=== PATIENT | female | born 1955 ===

== ENCOUNTER 2019-05-28 09:04 | Outpatient (CLI) | payer MEDICARE ==
[2019-05-28 10:59] LABS: Basophils % (Auto) 0.7 % (0.0-1.8); Eosinophils # (Auto) 0.1 K/mm3 (0.0-0.4); Eosinophils % (Auto) 2.2 % (0.0-4.3); Hematocrit 40.8 % (30.3-42.9); Hemoglobin 13.2 gm/dl (10.1-14.3); Lymphocytes # (Auto) 1.6 K/mm3 (1.2-5.4); Mean Corpuscular HGB Conc 32 % (30-34); Mean Corpuscular Volume 82 fl (79-97); Monocytes # (Auto) 0.5 K/mm3 (0.0-0.8); Monocytes % (Auto) 7.2 % (0.0-7.3); Platelet Count 253 K/mm3 (140-440); Red Blood Count 4.97 M/mm3 (3.65-5.03); Red Cell Distribution Width 14.5 % (13.2-15.2)
[2019-05-28 11:12] LABS: Alanine Aminotransferase 30 units/L (7-56); Albumin 5.1 g/dL (3.9-5); BUN/Creatinine Ratio 18; Blood Urea Nitrogen 14 mg/dL (7-17); Calcium 9.9 mg/dL (8.4-10.2); Chol/HDL Ratio 3.34 %; HDL Cholesterol 58 mg/dL (40-59); Hemolysis Index 89; LDL Cholesterol,Direct 127 mg/dL (50-130)
[2019-05-31 15:11] LABS: Vitamin D, 25-OH, D2 52 ng/mL
== END 2019-05-28 09:05 | disposition home or self-care (01) ==
LOC: LAB 09:04
PROVIDERS: ATTEND Internal Medicine
DX: Z00.00 Encounter for general adult medical examination without abnormal findings (principal); E78.5 Hyperlipidemia, unspecified; R73.09 Other abnormal glucose; Z13.21 Encounter for screening for nutritional disorder; Z13.29 Encounter for screening for other suspected endocrine disorder
CPT/HCPCS: 36415; 80053; 80061; 82306; 82607; 83036; 84443; 85025

== ENCOUNTER 2019-10-12 10:10 | Outpatient (CLI) | payer MEDICARE ==
[2019-10-12 12:36] LABS: Chol/HDL Ratio 3.81 %
== END 2019-10-12 10:11 | disposition home or self-care (01) ==
LOC: LAB 10:10
PROVIDERS: ATTEND Internal Medicine
DX: I10 Essential (primary) hypertension (principal); E78.5 Hyperlipidemia, unspecified; R73.03 Prediabetes
CPT/HCPCS: 36415; 80061; 83036

== ENCOUNTER 2022-01-12 08:29 | Emergency (ER) | payer MEDICARE ==
[2022-01-12 08:56] VITALS: BP 133/79
--- NOTE | 2022-01-12 09:06 | Emergency Department Report ---
ED Lower Extremity HPI - General Chief Complaint: Extremity Injury, Lower Stated Complaint: FOOT INJURY Time Seen by Provider: 01/12/22 08:56 Source: patient Mode of arrival: Ambulatory Limitations: No Limitations - History of Present Illness Initial Comments: Patient is a 66-year-old female that comes to the emergency room with her sister. She is complaining of right lateral ankle swelling. The patient has schizophrenia, is in the care of her sister. There is no injury known. But the sister notes that the patient had swelling over the last several days and was limping so she brought her in to make sure she has not fractured her ankle. Patient is ambulatory neurovascularly intact MD Complaint: ankle injury -: Sudden, days(s) Injury: Ankle: Right Type of Injury: unknown Place: home Severity: mild - Related Data Home Medications Medication Instructions Recorded Confirmed Last Taken Metoprolol 50 mg PO DAILY 06/21/18 06/21/18 06/20/18 Pravastatin 20 mg PO DAILY 06/21/18 06/21/18 06/20/18 QUEtiapine 50 mg PO DAILY 06/21/18 06/21/18 06/20/18 Vitamin D2 1 tab PO DAILY 06/21/18 06/21/18 06/20/18 amLODIPine 5 mg PO DAILY 06/21/18 06/21/18 06/20/18 cloNIDine-TTS PATCH 0.2 mg PO DAILY 06/21/18 06/21/18 06/20/18 hydroCHLOROthiazide 25 mg PO DAILY 06/21/18 06/21/18 06/20/18 Allergies Allergy/AdvReac Type Severity Reaction Status Date / Time No Known Allergies Allergy Verified 06/21/18 08:17 ED Review of Systems ROS: Stated complaint: FOOT INJURY Other details as noted in HPI Comment: All other systems reviewed and negative ED Past Medical Hx - Past Medical History Previous Medical History?: Yes Hx Hypertension: Yes Hx Heart Attack/AMI: No Additional medical history: schizophrenia - Surgical History Past Surgical History?: No - Family History Family history: no significant - Social History Smoking Status: Never Smoker Substance Use Type: None - Medications Home Medications: Home Medications Medication Instructions Recorded Confirmed Last Taken Type Metoprolol 50 mg PO DAILY 06/21/18 06/21/18 06/20/18 History Pravastatin 20 mg PO DAILY 06/21/18 06/21/18 06/20/18 History QUEtiapine 50 mg PO DAILY 06/21/18 06/21/18 06/20/18 History Vitamin D2 1 tab PO DAILY 06/21/18 06/21/18 06/20/18 History amLODIPine 5 mg PO DAILY 06/21/18 06/21/18 06/20/18 History cloNIDine-TTS PATCH 0.2 mg PO DAILY 06/21/18 06/21/18 06/20/18 History hydroCHLOROthiazide 25 mg PO DAILY 06/21/18 06/21/18 06/20/18 History ED Physical Exam - General Limitations: No Limitations General appearance: alert, in no apparent distress - Head Head exam: Present: atraumatic, normocephalic - Eye Eye exam: Present: normal appearance - ENT ENT exam: Present: mucous membranes moist - Neck Neck exam: Present: normal inspection - Respiratory Respiratory exam: Present: normal lung sounds bilaterally. Absent: respiratory distress - Cardiovascular Cardiovascular Exam: Present: regular rate, normal rhythm. Absent: systolic murmur, diastolic murmur, rubs, gallop - GI/Abdominal GI/Abdominal exam: Present: soft, normal bowel sounds - Extremities Exam Extremities exam: Present: normal inspection - Expanded Lower Extremity Exam Right Lower Leg exam: Present: normal inspection Ankle exam: Present: tenderness, swelling Foot/Toe exam: Present: normal inspection - Back Exam Back exam: Present: normal inspection - Neurological Exam Neurological exam: Present: alert, oriented X3 - Psychiatric Psychiatric exam: Present: normal affect, normal mood - Skin Skin exam: Present: warm, dry, intact, normal color. Absent: rash ED Course Vital Signs 01/12/22 08:49 Temperature 99.0 F Pulse Rate 97 H Respiratory 17 Rate Blood Pressure 133/79 O2 Sat by Pulse 97 Oximetry ED Lower Extremity MDM - Radiology Data Radiology results: report reviewed, image reviewed neg - Medical Decision Making Vital Signs 01/12/22 08:49 Temperature 99.0 F Pulse Rate 97 H Respiratory 17 Rate Blood Pressure 133/79 O2 Sat by Pulse 97 Oximetry Patient has right lateral malleoli are ankle swelling. X-ray normal. Neurovascularly intact. Ambulatory. ICE applied to the ankle Patient being discharged home with her sister. Sister verbalizes understanding of discharge plan of care including diet, activity, medications and follow-up. - Differential Diagnosis ro fx Critical care attestation.: If time is entered above; I have spent that time in minutes in the direct care of this critically ill patient, excluding procedure time. ED Disposition Clinical Impression: Contusion Qualifiers: Encounter type: initial encounter Contusion area: ankle Disposition: HOME / SELF CARE / HOMELESS Is pt being admited?: No Does the pt Need Aspirin: No Condition: Stable Instructions: Contusion Additional Instructions: rest ice elevate motrin or tylenol for pain follow up with pcp if persists referral below xray normal Referrals: FRNATZ WEBB MD [Staff Physician] - 3-5 Days Time of Disposition: 09:37
--- NOTE | 2022-01-12 09:31 | XRay Report ---
XR ankle 3+V RT INDICATION / CLINICAL INFORMATION: ankle pain. COMPARISON: None available. FINDINGS: BONES/JOINT(S): No acute fracture or subluxation. Normal bone mineralization. SOFT TISSUES: Diffuse soft tissue swelling. No foreign bodies or gas. ADDITIONAL FINDINGS: None. Signer Name: Tae Blanton MD Signed: 01/12/2022 9:26 AM Workstation Name: [id number]
== END 2022-01-12 10:21 | disposition home or self-care (01) ==
LOC: ED 08:29
DX: S90.01XA Contusion of right ankle, initial encounter (principal); X58.XXXA Exposure to other specified factors, initial encounter; Y93.89 Activity, other specified; Y92.89 Other specified places as the place of occurrence of the external cause; Y99.8 Other external cause status
CPT/HCPCS: 99283